=== PATIENT | female | born 1955 | race Caucasian/White ===

== ENCOUNTER 2022-10-03 16:01 | Emergency (ER) | payer BC, MEDICAID ==
[~2022-10-03] VITALS: Ht 154.9 cm; Wt 54.0 kg
[2022-10-03 19:04] VITALS: BP 179/113
[2022-10-03] MEDS ORDERED: NAP500T PO (23:04)
[2022-10-03] MEDS ORDERED: CYCL-837 PO (23:04)
[2022-10-03] MEDS ORDERED: KETOROLAC TROMETH 60MG/2ML VIAL IM ONE (23:15)
== END 2022-10-04 06:56 | disposition home or self-care (01) ==
LOC: ER 16:01 → EDBD 16:01 → ER 10-04 06:56
DX: S16.1XXA Strain of muscle, fascia and tendon at neck level, initial encounter (principal); S70.11XA Contusion of right thigh, initial encounter; S20.02XA Contusion of left breast, initial encounter; F17.210 Nicotine dependence, cigarettes, uncomplicated; Z79.899 Other long term (current) drug therapy; W01.0XXA Fall on same level from slipping, tripping and stumbling without subsequent striking against object, initial encounter; Y93.89 Activity, other specified; Y92.89 Other specified places as the place of occurrence of the external cause; Y99.8 Other external cause status
CPT/HCPCS: 70450; 71250; 72125; 73700; 74176; 96372; 99284; J1885

== ENCOUNTER 2022-10-14 13:56 | Emergency (ER) | payer BC, MEDICARE ==
[~2022-10-14] VITALS: Ht 152.4 cm; Wt 45.0 kg
[~2022-10-14 13:56] MED LIST: CYCL-837 PO; NAP500T PO
[2022-10-14 15:19] LABS: Basophils # (auto) 0.1 10 ^3/uL (0-0.2); Basophils % (auto) 0.7 % (0.0-2.0); Eosinophils # (auto) 0.4 10 ^3/uL (0-0.8); Eosinophils % (auto) 3.5 % (0.0-7.0); Hematocrit 52.3 % (36.0-46.0); Lymphocytes # (auto) 2.6 10 ^3/uL (0.4-5.4); Lymphocytes % (auto) 22.8 % (10.0-50.0); Mean Corpuscular Hemoglobin 28.2 pg (28.0-32.0); Mean Corpuscular Hgb Conc. 32.5 g/dL (32.0-36.0); Mean Corpuscular Volume 86.8 fL (80.0-100.0); Monocytes # (auto) 1.2 10 ^3/uL (0-1.3); Monocytes % (auto) 10.7 % (0.0-12.0); Neutrophils # (auto) 7.1 10 ^3/uL (1.6-8.6); Neutrophils % (auto) 62.3 % (37.0-80.0); Nucleated Red Blood Cells % 0.2 %; Red Blood Cells 6.02 10^6/uL (4.0-5.20); Red Cell Distribution Width 15.2 % (11.8-14.3); White Blood Cell 11.4 10^3/uL (4.4-10.8)
[2022-10-14 15:34] LABS: Albumin 4.1 g/dL (3.4-5.0); INR 0.95 (0.9-1.15); Partial Thromboplastin Time 29.2 sec (24.6-33.4); Potassium 4.3 mmol/L (3.5-5.1)
[2022-10-14 15:37] LABS: BUN/Creatinine Ratio 12.9; Bilirubin, Total 0.3 mg/dL (0.2-1.0); Total Protein 8.2 g/dL (6.4-8.2)
[2022-10-14] MEDS ORDERED: ASPirin 81 mg TAB PO ONE (16:30)
[2022-10-14 19:39] LABS: Urine Bacteria NONE SEEN /hpf (None Seen); Urine Blood Negative /uL (Negative); Urine Hyaline Cast FEW /lpf (0 - 2); Urine Specific Gravity 1.019 (1.001-1.035); Urine WBC 37 /hpf (0 - 5)
[2022-10-14] MEDS ORDERED: cefTRIAXone 1GM/50ML D5W 50 ML IV ONE (20:15)
[2022-10-14] MEDS ORDERED: hydrALAZINE HCL 20 MG/ML VL IV PRN (20:15)
[2022-10-14 20:30] LABS: Alcohol, Urine < 3.0 mg/dL (0-10); Amphetamine Screen, Urine NEGATIVE (NEGATIVE); Barbiturate Scree,Urine NEGATIVE (NEGATIVE); Benzodiazephine Screen, Urine NEGATIVE (NEGATIVE); Cannabinoid Screen, Urine NEGATIVE (NEGATIVE); Cocaine Screen, Urine NEGATIVE (NEGATIVE); Opiate Scree,Urine NEGATIVE (NEGATIVE); Phencyclidine Screen, Urine NEGATIVE (NEGATIVE)
[2022-10-14] MEDS ORDERED: ALUM & MAG HYDROX-SIMETH LIQ(MAALOX) 30 ML PO ONE (20:45)
[2022-10-14] MEDS ORDERED: SODIUM CHLORIDE 0.9% 1,000 ML IV ONE (20:45)
[2022-10-14] MEDS ORDERED: AZITHROMYCIN 250 MG TAB PO ONE (20:45)
[2022-10-14] MEDS: PROMETHAZINE W/CODEINE 5 ML ORAL SYRUP PO PRN (21:03)
[2022-10-14 23:49] LABS: Basophils # (auto) 0.1 10 ^3/uL (0-0.2); Basophils % (auto) 0.6 % (0.0-2.0); Eosinophils # (auto) 0.5 10 ^3/uL (0-0.8); Eosinophils % (auto) 3.9 % (0.0-7.0); Hematocrit 45.3 % (36.0-46.0); Hemoglobin 14.4 g/dL (12.2-16.2); Lymphocytes # (auto) 2.3 10 ^3/uL (0.4-5.4); Lymphocytes % (auto) 17.1 % (10.0-50.0); Mean Corpuscular Hemoglobin 27.9 pg (28.0-32.0); Mean Corpuscular Hgb Conc. 31.9 g/dL (32.0-36.0); Mean Corpuscular Volume 87.6 fL (80.0-100.0); Monocytes # (auto) 1.5 10 ^3/uL (0-1.3); Monocytes % (auto) 11.2 % (0.0-12.0); Neutrophils # (auto) 9.1 10 ^3/uL (1.6-8.6); Neutrophils % (auto) 67.2 % (37.0-80.0); Nucleated Red Blood Cells % 0.1 %; Red Blood Cells 5.17 10^6/uL (4.0-5.20); Red Cell Distribution Width 15.3 % (11.8-14.3); White Blood Cell 13.6 10^3/uL (4.4-10.8)
[2022-10-15] MEDS ORDERED: MORPHINE SULFATE INJ 2 MG/ml SYRG IV PRN (01:15)
[2022-10-15] MEDS ORDERED: hydrALAZINE HCL 20 MG/ML VL IV PRN (02:30)
[2022-10-15] MEDS: PROMETHAZINE W/CODEINE 5 ML ORAL SYRUP PO PRN (04:05)
[2022-10-15 07:15] LABS: Basophils # (auto) 0.1 10 ^3/uL (0-0.2); Basophils % (auto) 0.6 % (0.0-2.0); Eosinophils # (auto) 0.5 10 ^3/uL (0-0.8); Eosinophils % (auto) 3.4 % (0.0-7.0); Hematocrit 43.7 % (36.0-46.0); Hemoglobin 14.4 g/dL (12.2-16.2); Lymphocytes # (auto) 2.5 10 ^3/uL (0.4-5.4); Lymphocytes % (auto) 16.8 % (10.0-50.0); Mean Corpuscular Hemoglobin 28.1 pg (28.0-32.0); Mean Corpuscular Hgb Conc. 32.9 g/dL (32.0-36.0); Mean Corpuscular Volume 85.5 fL (80.0-100.0); Monocytes # (auto) 1.7 10 ^3/uL (0-1.3); Monocytes % (auto) 11.2 % (0.0-12.0); Neutrophils # (auto) 10.3 10 ^3/uL (1.6-8.6); Red Blood Cells 5.12 10^6/uL (4.0-5.20); Red Cell Distribution Width 15.3 % (11.8-14.3); White Blood Cell 15.1 10^3/uL (4.4-10.8)
[2022-10-15] MEDS ORDERED: HYDROcodone-ACET 5/325MG TAB PO PRN (08:45)
[2022-10-15] MEDS ORDERED: guaiFENesin-DM 100/10mg/5ml SYR PO PRN (09:00)
[2022-10-15 09:01] VITALS: BP 122/63
[2022-10-15] MEDS ORDERED: ACET-1079 PO (13:57)
[2022-10-15] MEDS ORDERED: FAMO20TA10 PO (13:57)
[2022-10-15] MEDS ORDERED: DEXT1LIQ36 PO (13:57)
[2022-10-15] MEDS ORDERED: ALBUAER3 IN (13:57)
[2022-10-15] MEDS ORDERED: CIPR250T3 PO (14:10)
[2022-10-15] MEDS ORDERED: LEVO500T31 PO (14:16)
== END 2022-10-15 09:16 | disposition admitted as inpatient to this hospital (09) ==
LOC: ER 13:56 → EDBD 13:56 → EDUNIT# 13:56 → ER 10-15 09:16
DX: R07.9 Chest pain, unspecified (principal); R10.10 Upper abdominal pain, unspecified; I20.0 Unstable angina; I11.0 Hypertensive heart disease with heart failure; I50.9 Heart failure, unspecified; F17.210 Nicotine dependence, cigarettes, uncomplicated; Z20.822 Contact with and (suspected) exposure to COVID-19
CPT/HCPCS: 36415; 71045; 74176; 76705; 80053; 80307; 81001; 82150; 83690; 84484; 85025; 85610; 85730; 86677; 87040; 87426; 87804; 93005; 96365; 96375; 99285; J0360; J0696; J2270; J7030; 87086; 99291

== ENCOUNTER 2023-06-15 04:55 | Observation (INO) | payer OTHER, MEDICAID ==
[~2023-06-15] VITALS: Ht 152.4 cm; Wt 54.6 kg
[~2023-06-15 04:55] MED LIST changes: +ACET-1079 PO; +ALBUAER3 IN; +FAMO20TA10 PO; +LEVO500T31 PO; +[UNRECOGNIZED DRUG - CODE] PO
[2023-06-15 05:15] VITALS: PULSE 83; RESP 16; O2SAT 94
[2023-06-15] MEDS ORDERED: HYDROmorphone HCL 2 MG/ML VL/or syr IV ONE (05:30)
[2023-06-15] MEDS ORDERED: SODIUM CHLORIDE 0.9% 1,000 ML IV ONE (05:30)
[2023-06-15 05:44] LABS: Basophils # (auto) 0.1 10 ^3/uL (0-0.2); Basophils % (auto) 0.5 % (0.0-2.0); Eosinophils # (auto) 0 10 ^3/uL (0-0.8); Eosinophils % (auto) 0.1 % (0.0-7.0); Hematocrit 32.3 % (36.0-46.0); Lymphocytes # (auto) 1.2 10 ^3/uL (0.4-5.4); Lymphocytes % (auto) 7.1 % (10.0-50.0); Mean Corpuscular Hemoglobin 30.9 pg (28.0-32.0); Mean Corpuscular Volume 90.8 fL (80.0-100.0); Monocytes # (auto) 2.4 10 ^3/uL (0-1.3); Monocytes % (auto) 13.9 % (0.0-12.0); Neutrophils # (auto) 13.8 10 ^3/uL (1.6-8.6); Neutrophils % (auto) 78.4 % (37.0-80.0); Red Blood Cells 3.56 10^6/uL (4.0-5.20); Red Cell Distribution Width 14.1 % (11.8-14.3); White Blood Cell 17.5 10^3/uL (4.4-10.8)
[2023-06-15 06:06] LABS: Calcium 8.2 mg/dL (8.5-10.1); Potassium 4.2 mmol/L (3.5-5.1)
[2023-06-15 06:09] LABS: BUN/Creatinine Ratio 26.7 (10.0-20.0); Bilirubin, Total 0.5 mg/dL (0.2-1.0); Total Protein 6.4 g/dL (6.4-8.2)
[2023-06-15] MEDS ORDERED: ONDANSETRON HCL 4 MG/2 ML VIAL IV ONE (06:30)
[2023-06-15 09:43] VITALS: PULSE 72; RESP 18; O2SAT 96
[2023-06-15 09:55] LABS: Urine Bacteria FEW /hpf (None Seen); Urine Blood TRACE /uL (Negative); Urine Clarity HAZY (Clear); Urine Color Yellow (Yellow); Urine Mucus FEW (None Seen); Urine Protein, UAD 1+ (Negative); Urine Specific Gravity 1.014 (1.001-1.035); Urine Urobilinogen Normal (Negative); Urine WBC 39 /hpf (0 - 5); Urine pH 5.5 (5.0-8.0)
[2023-06-15] MEDS ORDERED: ASPirin 81 mg TAB PO ONE (10:00)
[2023-06-15 10:27] LABS: Alcohol, Urine < 3.0 mg/dL (0-10); Amphetamine Screen, Urine NEGATIVE (NEGATIVE); Barbiturate Scree,Urine NEGATIVE (NEGATIVE); Benzodiazephine Screen, Urine NEGATIVE (NEGATIVE); Cannabinoid Screen, Urine NEGATIVE (NEGATIVE); Cocaine Screen, Urine NEGATIVE (NEGATIVE); Opiate Scree,Urine NEGATIVE (NEGATIVE); Phencyclidine Screen, Urine NEGATIVE (NEGATIVE)
[2023-06-15] MEDS ORDERED: HYDROcodone-ACET 5/325MG TAB PO ONE (11:45)
[2023-06-15] MEDS ORDERED: MORPHINE SULFATE INJ 2 MG/ml SYRG IV PRN (13:30)
[2023-06-15] MEDS ORDERED: NITROGLYCERIN 0.4 MG SL TAB SL PRN (13:30)
[2023-06-15 13:59] LABS: Cholesterol 87 mg/dL (< 200)
[2023-06-15] MEDS ORDERED: levoFLOXacin 750MG 150 ML IV SCH (14:00)
[2023-06-15] MEDS ORDERED: cefTRIAXone 1GM/50ML D5W 50 ML IV ONE (14:00)
[2023-06-15 14:02] LABS: HDL Cholesterol 27 mg/dL (40-59); LDL Cholesterol 39 mg/dL (< 100); Triglycerides 156 mg/dL (< 150)
[2023-06-15] MEDS ORDERED: ONDANSETRON HCL 4 MG/2 ML VIAL IV PRN (17:00)
[2023-06-15] MEDS ORDERED: CLOP75TA70 PO (17:53)
[2023-06-15] MEDS ORDERED: CARV6.2551 PO (17:53)
[2023-06-15] MEDS ORDERED: LISI2.5T47 PO (17:53)
[2023-06-15] MEDS ORDERED: HYDR-4902 PO (17:53)
[2023-06-15] MEDS ORDERED: ATOR-47 PO (17:53)
[2023-06-15] MEDS ORDERED: ASPI1TAB20 PO (17:53)
[2023-06-15] MEDS: SODIUM CHLORIDE 0.9% 1,000 ML IV SCH (18:40)
[2023-06-15] MEDS: MIDODRINE HCL 10 MG TAB PO SCH (18:40)
[2023-06-16] VITALS (9 sets, daily range): BP systolic 96–125; BP diastolic 55–77; PULSE 62–89; RESP 17–18; TEMP 37.1; O2SAT 94–98
[2023-06-16] MEDS: SODIUM CHLORIDE 0.9% 1,000 ML IV SCH ×3 (01:45→17:34)
[2023-06-16] MEDS ORDERED: ACETAMINOPHEN 325 MG TAB PO PRN (04:45)
[2023-06-16] MEDS: HYDROcodone-ACET 5/325MG TAB PO PRN ×3 (06:03→21:59)
[2023-06-16 06:29] LABS: Basophils # (auto) 0.1 10 ^3/uL (0-0.2); Basophils % (auto) 0.3 % (0.0-2.0); Eosinophils # (auto) 0.1 10 ^3/uL (0-0.8); Eosinophils % (auto) 0.4 % (0.0-7.0); Hematocrit 31.5 % (36.0-46.0); Hemoglobin 10.3 g/dL (12.2-16.2); Lymphocytes # (auto) 1.1 10 ^3/uL (0.4-5.4); Lymphocytes % (auto) 6.8 % (10.0-50.0); Mean Corpuscular Hemoglobin 30.8 pg (28.0-32.0); Mean Corpuscular Hgb Conc. 32.8 g/dL (32.0-36.0); Mean Corpuscular Volume 93.9 fL (80.0-100.0); Monocytes # (auto) 1.7 10 ^3/uL (0-1.3); Monocytes % (auto) 11.2 % (0.0-12.0); Neutrophils # (auto) 12.6 10 ^3/uL (1.6-8.6); Neutrophils % (auto) 81.3 % (37.0-80.0); Red Blood Cells 3.35 10^6/uL (4.0-5.20); Red Cell Distribution Width 14.3 % (11.8-14.3); White Blood Cell 15.5 10^3/uL (4.4-10.8)
[2023-06-16] MEDS: MIDODRINE HCL 10 MG TAB PO SCH ×3 (06:41→17:34)
[2023-06-16 06:51] LABS: Potassium 4.2 mmol/L (3.5-5.1)
[2023-06-16 06:52] LABS: BUN/Creatinine Ratio 34.6 (10.0-20.0)
[2023-06-16] MEDS: ASPirin 81 mg TAB PO SCH (09:53)
[2023-06-16] MEDS: CLOPIDOGREL BISULFATE 75 MG TAB PO SCH (09:53)
[2023-06-16] MEDS: ATORVASTATIN 20 MG TAB PO SCH (09:54)
[2023-06-16] MEDS: levoFLOXacin 500MG 100 ML IV SCH (15:03)
[2023-06-17] MEDS: SODIUM CHLORIDE 0.9% 1,000 ML IV SCH ×3 (01:45→17:45)
[2023-06-17 05:00] VITALS: BP 138/68; PULSE 73; RESP 18; TEMP 98.6; O2SAT 95
[2023-06-17] MEDS: MIDODRINE HCL 10 MG TAB PO SCH ×3 (06:12→18:00)
[2023-06-17 08:00] VITALS: BP 131/57; PULSE 58; PULSE 66; RESP 18; TEMP 98.2; O2SAT 96
[2023-06-17 09:00] VITALS: BP 131/57; PULSE 66; RESP 18; TEMP 98.2; O2SAT 96
[2023-06-17] MEDS: HYDROcodone-ACET 5/325MG TAB PO PRN ×2 (10:36→14:32)
[2023-06-17] MEDS: ATORVASTATIN 20 MG TAB PO SCH (10:37)
[2023-06-17] MEDS: CLOPIDOGREL BISULFATE 75 MG TAB PO SCH (10:37)
[2023-06-17] MEDS: ASPirin 81 mg TAB PO SCH (10:37)
[2023-06-17 13:00] VITALS: BP 122/67; PULSE 69; RESP 18; TEMP 98; O2SAT 95
[2023-06-17] MEDS: levoFLOXacin 500MG 100 ML IV SCH (14:32)
[2023-06-17 17:02] VITALS: BP 116/58; PULSE 67; RESP 18; TEMP 98.2; O2SAT 97
== END 2023-06-17 19:01 | disposition home health service (06) ==
LOC: ER 04:55 → EDBD 04:55 → TELE 13:30 → TELE-WESTW 21:24
PROVIDERS: ADMIT Internal Medicine; ATTEND Internal Medicine
DX: I63.311 Cerebral infarction due to thrombosis of right middle cerebral artery (principal); I63.441 Cerebral infarction due to embolism of right cerebellar artery; R26.9 Unspecified abnormalities of gait and mobility; F17.210 Nicotine dependence, cigarettes, uncomplicated; E78.5 Hyperlipidemia, unspecified; I10 Essential (primary) hypertension; I25.10 Atherosclerotic heart disease of native coronary artery without angina pectoris; G93.89 Other specified disorders of brain; I63.10 Cerebral infarction due to embolism of unspecified precerebral artery; I63.411 Cerebral infarction due to embolism of right middle cerebral artery; I69.354 Hemiplegia and hemiparesis following cerebral infarction affecting left non-dominant side; I69.398 Other sequelae of cerebral infarction; N30.00 Acute cystitis without hematuria; I25.2 Old myocardial infarction; R29.6 Repeated falls; R56.9 Unspecified convulsions; R29.700 NIHSS score 0; Z79.82 Long term (current) use of aspirin; Z79.899 Other long term (current) drug therapy; Z98.890 Other specified postprocedural states; Z98.891 History of uterine scar from previous surgery
CPT/HCPCS: 36415; 70450; 70551; 71045; 72100; 73502; 73560; 80048; 80053; 80061; 80307; 80329; 81001; 83880; 84484; 85025; 93306; 93886; 96361; 96365; 96366; 96368; 96375; 97110; 97116; 97163; 97530; 99285; G0378; J0696; J1170; J1956; J2405; J7030